=== PATIENT | female | born 1985 | race Two or more races ===

== ENCOUNTER 2024-05-21 07:35 | Inpatient (IN) | payer OTHER, SELFPAY ==
[2024-05-21] MEDS: LR 1000 IV (07:38)
[2024-05-21] MEDS: PITOCIN 10 UNITS IM (07:40)
[2024-05-21] MEDS: PITOCIN 30 UNITS/NSS 500 ML IV (07:45)
[2024-05-21 07:53] LABS: Cord ABG Comment CORD BLOOD
[2024-05-21 07:56] LABS: B.E. Cord ABG -3.8 mMOL/L; HCO3 Cord ABG 23.5 mmol/L; O2 Saturation % Cord ABG 36.6 %; PCO2 Cord ABG 50 mmHg; PO2 Cord ABG 22 mmHg; pH Cord ABG 7.28
[2024-05-21 07:59] LABS: B.E. Cord ABG -4.7 mMOL/L; HCO3 Cord ABG 24.1 mmol/L; O2 Saturation % Cord ABG 25.5 %; PCO2 Cord ABG 59 mmHg; PO2 Cord ABG 17 mmHg; pH Cord ABG 7.22
[2024-05-21 08:05] VITALS: BP 129/77; BMI 33.3
[2024-05-21 08:39] LABS: % Basophils 0.4 % (0-2); % Eosinophils 0.6 % (0-6); % Immature Granulocytes 1.8 % (0-0.5); % Lymphocytes 14.6 % (20.5-51.1); % Monocytes 5.5 % (1.7-9.3); % Neutrophils 77.1 % (42.2-75.2); Absolute Basophils 0.1 10^3/uL (0-0.2); Absolute Eosinophils 0.1 10^3/uL (0-0.7); Absolute Immature Granulocytes 0.3 10^3/uL (0-0.05); Absolute Lymphocytes 2.7 10^3/uL (1.2-3.4); Absolute Neutrophils 14.4 10^3/uL (1.4-6.5); Hematocrit 35.6 % (37.0-47.0); Hemoglobin 12.2 g/dL (12.0-16.0); Mean Corp Hgb Conc. 34.3 g/dL (33.0-37.0); Mean Corpuscular Hgb 28.4 pg (27.0-31.0); Mean Platelet Volume 10.4 fL (7.4-10.4); Nucleated Red Blood Cells % 0 %; Platelet Count 367 10^3/uL (130-400); Red Blood Cell Count 4.29 10^6/uL (4.20-5.40); Red Cell Dist. Width 14.1 % (11.5-14.5); White Blood Cell Count 18.7 10^3/uL (4.8-10.8)
[2024-05-21] MEDS: TYLENOL 650 MG PO ×3 (08:48→22:02)
[2024-05-21] MEDS: MOTRIN 600 MG PO ×2 (13:45→20:37)
[2024-05-22 04:30] LABS: Hematocrit 29.1 % (37.0-47.0); Hemoglobin 10.1 g/dL (12.0-16.0)
[2024-05-22 12:09] LABS: Syphilis/T. pallidum Ab Reflex Negative (Negative)
[2024-05-22] MEDS: TYLENOL 650 MG PO (18:33)
[2024-05-22] MEDS: MOTRIN 600 MG PO (18:33)
== END 2024-05-22 23:15 | disposition home or self-care (01) | DRG 807 ==
LOC: LDRP 07:35
PROVIDERS: ADMITTING PHYSICIAN Obstetrics & Gynecology; ATTENDING PHYSICIAN Obstetrics & Gynecology
PROC: 10D07Z7 Extraction of Products of Conception, Internal Version, Via Natural or Artificial Opening (ICD-10-PCS; 2024-05-21)
DX: O66.0 Obstructed labor due to shoulder dystocia (principal); Z37.0 Single live birth; O62.3 Precipitate labor; O77.0 Labor and delivery complicated by meconium in amniotic fluid; O71.89 Other specified obstetric trauma; Z3A.40 40 weeks gestation of pregnancy
CPT/HCPCS: 88307; 82803; 85014; 85018; 85025; 86780; 86850; 86900; 86901

== ENCOUNTER 2024-11-04 06:17 | Emergency (ER) | payer OTHER, SELFPAY ==
[2024-11-04 06:19] VITALS: BP 130/86
[2024-11-04 07:44] LABS: % Basophils 0.1 % (0-2); % Immature Granulocytes 0.5 % (0-0.5); % Lymphocytes 7.2 % (20.5-51.1); % Monocytes 3.3 % (1.7-9.3); % Neutrophils 88.9 % (42.2-75.2); Absolute Immature Granulocytes 0.1 10^3/uL (0-0.05); Absolute Lymphocytes 0.7 10^3/uL (1.2-3.4); Absolute Monocytes 0.3 10^3/uL (0.1-0.6); Absolute Neutrophils 9.1 10^3/uL (1.4-6.5); Hematocrit 41.4 % (37.0-47.0); Hemoglobin 13.8 g/dL (12.0-16.0); Mean Corp Hgb Conc. 33.3 g/dL (33.0-37.0); Mean Corpuscular Hgb 28.3 pg (27.0-31.0); Mean Platelet Volume 10.3 fL (7.4-10.4); Nucleated Red Blood Cells % 0 %; Platelet Count 335 10^3/uL (130-400); Red Blood Cell Count 4.87 10^6/uL (4.20-5.40); Red Cell Dist. Width 12.5 % (11.5-14.5); White Blood Cell Count 10.3 10^3/uL (4.8-10.8)
--- NOTE | 2024-11-04 07:51 | ED.GENMED ---
History of Present Illness
General
Chief Complaint: Abdominal Pain
Time Seen by Provider: 11/04/24 07:50
History of Present Illness
History of Present Illness:
TIME OF INITIAL ENCOUNTER: 7:55 AM
HPI: The patient presents with abdominal cramping associated with rectal bleeding. This started nearly 12 hours ago. She states that she and her family ate chicken last night but she was the only 1 that got sick. She also states that she ate a
protein bar that requires refrigeration. She denies any history of food allergies. She said around the time this happened, her feet and hands cramped up and her lips were blue. She fell asleep on the bathroom floor.
EXAM:
GENERAL: Well appearing in no distress
HEENT: Moist oral mucosa
CARDIOVASCULAR: No murmurs, normal heart rate, regular rhythm, No chest wall tenderness
PULMONARY: No respiratory distress, breath sounds are clear and equal
ABDOMEN: Soft with no peritoneal signs, minimal diffuse tenderness, no anal abnormality other than small nonthrombosed external hemorrhoid, no fissure, empty rectal vault, no gross blood,
NEUROLOGIC: Excellent strength all extremities, no coordination deficits
PSYCHIATRIC: Appropriate mental status, normal insight and judgement
EXTREMITIES: Nontender, no edema, moves all extremities equally
SKIN: No rash, no lesions
NUMBER AND COMPLEXITY OF PROBLEMS ADDRESSED AT THE ENCOUNTER
� Chronic conditions affecting care: History of plastic surgeries, anemia
� Acute Exacerbation and/or Progression of Chronic Illness: This is an acute problem
� Differential Diagnosis includes: Colitis, viral syndrome, foodborne illness, internal hemorrhoidal bleeding, external hemorrhoidal bleeding
AMOUNT AND/OR COMPLEXITY OF DATA TO BE REVIEWED AND ANALYZED
� I performed an independent evaluation of and my interpretation is:
EKG:
CT: CT imaging shows no acute abnormality
X-rays:
Laboratory Studies: Hemoglobin 13.8, white count normal chemistries relatively unremarkable but total bili is 1.6, hCG negative
Other:
� Review of other/old records: In May 2024, hemoglobin was 10.1
� Clinical information was obtained by an independent historian: Spoke to at bedside
� Prescriptions/Medications Considered but not given:
� Further testing considered but not performed:
RISK OF COMPLICATIONS AND/OR MORBIDITY OR MORTALITY OF PATIENT MANAGEMENT
� Social determinants of health affecting care: Lives at home
� Discussion with other providers: Notified GI service desk team lead to try to expedite close outpatient follow-up
� Escalation of care including admission/observation vs risk of discharge considered: White count is normal and hemoglobin is improved compared to prior. The patient requested imaging as she is very concerned about her symptoms.
Will also give IV fluids.
ANY OTHER UPDATES:
10:30 AM: I reassessed patient. The patient appears comfortable but does report passing blood again. No clear evidence for colitis but I did attempt to arrange close outpatient follow-up. She has been hemodynamically stable.
Phy Exam
Physical Exam
Physical Exam:
See HPI
Course
Orders/Labs/Results
Orders:
Orders
11/04/24 07:26
CMP [Comprehensive Metabolic Panel] Urgent
Complete Blood Count/With Diff Urgent
HCG, Serum Qualitative Screen Urgent
11/04/24 08:00
CT Abd/pelvis W Iv Cont Urgent
Comment:
Reason For Exam: abd cramping bloody diarrhea
11/04/24 08:06
0.9% Sodium Chloride 1000 ml [Nss] 1,000 ml IV BOLUS
11/04/24 08:09
Add On- LAB Urgent
Tests Added?: HCG
11/04/24 08:25
Norovirus by PCR Urgent
SHADE Source: Feces/Stool
Specimen Description:
Date Specimen was Collected: 11/04/24
Time Specimen was Collected: 08:04
STOOL [C difficile Antigen & Toxins] Urgent
SHADE Source: Feces/Stool
Specimen Description:
Date Specimen was Collected: 11/04/24
Time Specimen was Collected: 08:04
Stool Culture Urgent
SHADE Source: Feces/Stool
Specimen Description:
Date Specimen was Collected: 11/04/24
Time Specimen was Collected: 08:04
Abnormal Lab Results
11/04/24
07:26
Abs Immat Gran (auto) 0.1 H 10^3/uL
(0-0.05)
Absolute Neuts (auto) 9.1 H 10^3/uL
(1.4-6.5)
Absolute Lymphs (auto) 0.7 L 10^3/uL
(1.2-3.4)
Neutrophils % 88.9 H %
(42.2-75.2)
Lymphocytes % 7.2 L %
(20.5-51.1)
BUN 27 H mg/dl
(7-17)
Glucose 101 H mg/dl
(70-99)
Total Bilirubin 1.6 H mg/dl
(0.2-1.3)
11/04/24 07:26
11/04/24 07:26
Vital Signs
Initial and Last Documented VS:
Initial Vital Signs
Temp Pulse Resp BP Pulse Ox
37.2 C 100 20 130/86 97
11/04/24 06:19 11/04/24 06:19 11/04/24 06:19 11/04/24 06:19 11/04/24 06:19
Last Documented Vital Signs
Temp Pulse Resp BP Pulse Ox
37.2 C 100 20 130/86 97
11/04/24 06:19 11/04/24 06:19 11/04/24 06:19 11/04/24 06:19 11/04/24 06:19
*Critical Care Note
Total Time (30-74mins, 75-104mins- exclusive of procedures): Not Applicable
ED Attending Note
-
Portions of this chart may have been created with voice recognition software.� Occasional wrong word or��sound alike� substitutions may have occurred due to the inherent limitations of voice recognition software.
Discharge Plan
Departure
Patient Disposition: Home (Routine Discharge)
Date of Disposition: 11/04/24
Time of Disposition: 10:27
Patient with high blood pressure during this ER visit?: Yes
Discharge Problem:
Rectal bleeding
Instructions: Bloody Stools, Adult ED, BLOOD PRESSURE
Prescriptions:
No Action
acetaminophen 325 mg Tablet
650 mg PO Q4HPRN PRN (Reason: mild pain) Qty: 0 0RF
sennosides-docusate sodium [Stool Softener-Laxative] 8.6-50 mg Tablet
1 tab PO DAILYPRN PRN (Reason: constipation) Qty: 0 0RF
ibuprofen 600 mg Tablet
600 mg PO Q6HPRN PRN (Reason: moderate pain/cramps) Qty: 0 0RF
Referrals:
NONE,* [Family Provider] -
Shira Garcia, DO [Active] - Next open appointment
Activity Restrictions/Additional Instructions:
I have given you the contact information for a local GI doctor, Dr. Garcia. I also contacted her office to try to get you in soon. Your white blood cell hemoglobin levels are normal. The CAT scan of the abdomen pelvis did not show any acute
abnormality. testing was negative. Return here if worse or other concerns.
Interventions
Interventions:
*Risk Screen - Suicide Last Done: 11/04/24 06:19
*General Assessment Last Done: 11/04/24 08:10
*Neglect/Abuse Screening Last Done: 11/04/24 06:19
DX-Nyejog-Pongpbhgtt Assessment Last Done: 11/04/24 08:10
Discharge Date and Time
Print Language: PERUVIAN
[2024-11-04 07:53] LABS: ALT (SGPT) 21 U/L (0-35); AST (SGOT) 25 U/L (14-36); Albumin 4.7 g/dl (3.5-5.0); Alkaline Phosphatase 52 U/L (38-126); Blood Urea Nitrogen 27 mg/dl (7-17); Calcium 8.9 mg/dl (8.4-10.2); Carbon Dioxide 27 mmol/L (22-30); Chloride 102 mmol/L (98-107); Glucose 101 mg/dl (70-99); Sodium 140 mmol/L (135-145); Total Bilirubin 1.6 mg/dl (0.2-1.3); Total Protein 7.2 g/dl (6.3-8.2); eGFR > 60.00
[2024-11-04 08:10] VITALS: BMI 24.5
[2024-11-04] MEDS: NSS 1000 IV (08:27)
[2024-11-04 08:49] LABS: HCG, Serum Qualitative Screen Negative
[2024-11-04 10:48] VITALS: BP 145/78
== END 2024-11-04 10:49 | disposition home or self-care (01) ==
LOC: EMR 06:17
PROVIDERS: EMERGENCY PHYSICIAN Emergency Medicine
DX: K62.5 Hemorrhage of anus and rectum (principal)
CPT/HCPCS: 99284; 96360; 74177; 80053; 84703; 85025; 87045; 87046; 87324; 87427; 87449; 87798; Q9967

== ENCOUNTER 2024-11-27 21:29 | Emergency (ER) | payer OTHER, SELFPAY ==
--- NOTE | 2024-11-27 21:50 | ED.GENMED ---
History of Present Illness
<Terry Jordan PA-C - Last Filed: 11/28/24 01:15>
General
Chief Complaint: Abdominal Symptoms
Time Seen by Provider: 11/27/24 21:49
History of Present Illness
History of Present Illness:
39-year-old female with no significant past medical history presents to the emergency department via EMS due to high-volume diarrhea as well as a syncopal event. She had a sudden urge to defecate after eating at a restaurant, notes that she ate
scallops, shrimp, and salmon, had a syncopal event while in a convenience store and large volume of diarrhea. EMS reports that her BP was 45/30. No vomiting noted. She was here approximately 2 weeks ago due to bloody diarrhea and was diagnosed
with a viral syndrome. On arrival she was again incontinent of stool, high volume of watery diarrhea, blood-tinged. She is also reporting diffuse swelling bodily warmth
Review of Systems
<Terry Jordan PA-C - Last Filed: 11/28/24 01:15>
Review of Systems
Allergies reviewed?: Yes
All Other Systems: ROS reviewed and negative except as documented in HPI and ROS
Phy Exam
<Terry Jordan PA-C - Last Filed: 11/28/24 01:15>
Physical Exam
Physical Exam:
GEN: Toxic appearing, generally pale
Eyes: PERRLA, EOMs intact, no scleral icterus
HENT: NCAT, oral mucosa moist
Lungs: CTAB, no wheezes, rales, rhonchi, normal chest wall excursion
Cardiac: RRR, no M/R/G, no peripheral edema. Radial pulses 2+ bilat
Abdomen: S, NT, ND, NABS, no masses or hepatosplenomegaly
Neuro: AO x 3
MSK: No gross deformity or ecchymosis. No edema. No digital clubbing
Skin: Generally pale, diffuse erythema particularly of the lower extremities, mild facial and extremity edema noted
Psych: Calm, cooperative, proper hygiene
Course
<Terry Jordan PA-C - Last Filed: 11/28/24 01:15>
Orders/Labs/Results
Orders:
Orders
11/27/24 21:49
0.9% Sodium Chloride 1000 ml [Nss] 2,000 ml IV BOLUS
11/27/24 21:52
Electrocardiogram (*1) Urgent
Reason for Study: Chest Pain
EKG- Treatment ONCE
Diphenhydramine [Benadryl] 25 mg IV NOW STA
11/27/24 21:53
Diphenhydramine [Benadryl] 50 mg .ROUTE .STK-MED ONE
11/27/24 21:59
Complete Blood Count/With Diff Urgent
Comprehensive Metabolic Panel Urgent
Creatine Phosphokinase Urgent
Comment: ADDON
Lactic Acid Urgent
Lipase Urgent
Magnesium Urgent
Manual Differential Urgent
11/27/24 22:15
Famotidine [Pepcid] 20 mg IV NOW STA
MethylPREDNISolone PF [Solu-Medrol Pf] 60 mg IV NOW STA
11/27/24 22:40
Add On- LAB Urgent
Tests Added?: CPK
11/27/24 22:41
Diphenhydramine [Benadryl] 25 mg IV NOW STA
11/27/24 23:54
Lactate Level [Lactic Acid] Urgent
11/28/24 00:22
Acetaminophen [Tylenol] 650 mg .ROUTE .STK-MED ONE
11/28/24 00:25
Acetaminophen [Tylenol] 650 mg PO NOW STA
Abnormal Lab Results
11/27/24
21:59
WBC 10.9 H 10^3/uL
(4.8-10.8)
Plt Count 557 H 10^3/uL
(130-400)
Segmented Neutrophils 39 L %
(42-75)
Potassium 3.3 L mmol/L
(3.5-5.1)
BUN 26 H mg/dl
(7-17)
Glucose 159 H mg/dl
(70-99)
Lactic Acid 4.3 H* mmol/L
(0.7-2.0)
Creatine Kinase 566 H U/L
(30-135)
11/27/24 21:59
11/27/24 21:59
Vital Signs
Initial and Last Documented VS:
Initial Vital Signs
Pulse Resp Pulse Ox
99 18 97
11/27/24 21:54 11/27/24 21:54 11/27/24 21:54
Last Documented Vital Signs
Temp Pulse Resp BP Pulse Ox
95.4 F L 87 17 116/77 96
11/27/24 23:19 11/27/24 23:30 11/27/24 23:30 11/28/24 02:15 11/28/24 02:15
<Nate Isaac MD - Last Filed: 11/30/24 13:36>
Orders/Labs/Results
Orders:
Orders
11/27/24 21:49
0.9% Sodium Chloride 1000 ml [Nss] 2,000 ml IV BOLUS
11/27/24 21:52
Electrocardiogram (*1) Urgent
Reason for Study: Chest Pain
EKG- Treatment ONCE
Diphenhydramine [Benadryl] 25 mg IV NOW STA
11/27/24 21:53
Diphenhydramine [Benadryl] 50 mg .ROUTE .STK-MED ONE
11/27/24 21:59
Complete Blood Count/With Diff Urgent
Comprehensive Metabolic Panel Urgent
Creatine Phosphokinase Urgent
Comment: ADDON
Lactic Acid Urgent
Lipase Urgent
Magnesium Urgent
Manual Differential Urgent
11/27/24 22:15
Famotidine [Pepcid] 20 mg IV NOW STA
MethylPREDNISolone PF [Solu-Medrol Pf] 60 mg IV NOW STA
11/27/24 22:40
Add On- LAB Urgent
Tests Added?: CPK
11/27/24 22:41
Diphenhydramine [Benadryl] 25 mg IV NOW STA
11/27/24 23:54
Lactate Level [Lactic Acid] Urgent
11/28/24 00:22
Acetaminophen [Tylenol] 650 mg .ROUTE .STK-MED ONE
11/28/24 00:25
Acetaminophen [Tylenol] 650 mg PO NOW STA
Abnormal Lab Results
11/27/24
21:59
WBC 10.9 H 10^3/uL
(4.8-10.8)
Plt Count 557 H 10^3/uL
(130-400)
Segmented Neutrophils 39 L %
(42-75)
Potassium 3.3 L mmol/L
(3.5-5.1)
BUN 26 H mg/dl
(7-17)
Glucose 159 H mg/dl
(70-99)
Lactic Acid 4.3 H* mmol/L
(0.7-2.0)
Creatine Kinase 566 H U/L
(30-135)
11/27/24 21:59
11/27/24 21:59
Vital Signs
Initial and Last Documented VS:
Initial Vital Signs
Pulse Resp Pulse Ox
99 18 97
11/27/24 21:54 11/27/24 21:54 11/27/24 21:54
Last Documented Vital Signs
Temp Pulse Resp BP Pulse Ox
95.4 F L 87 17 116/77 96
11/27/24 23:19 11/27/24 23:30 11/27/24 23:30 11/28/24 02:15 11/28/24 02:15
<Terry Jordan PA-C - Last Filed: 11/28/24 01:15>
MDM/Problems Addressed
MDM/Problems Addressed:
Because the patient's symptoms is not clear. Certainly could represent acute scombroid fish poisoning however salmon is not a high incidence of causing this condition. Interestingly she does note having a similar event 1 week ago it was not nearly
as severe, this was not correlated with any seafood intake. Nevertheless she was hydrated aggressively and warmed with significant improvement in vital signs as well as physical appearance. Her edema did improve with antihistamines. Recommend
outpatient allergy follow-up, EpiPen will be prescribed given the frequency of these events
<Terry Jordan PA-C - Last Filed: 11/28/24 01:15>
*Critical Care Note
Total Time (30-74mins, 75-104mins- exclusive of procedures): Not Applicable
ED Attending Note
<Terry Jordan PA-C - Last Filed: 11/28/24 01:15>
-
Portions of this chart may have been created with voice recognition software.� Occasional wrong word or��sound alike� substitutions may have occurred due to the inherent limitations of voice recognition software.
<Nate Isaac MD - Last Filed: 11/30/24 13:36>
ED Attending Note
Patient seen and examined by attending physician: Yes
ED Attending Note:
Patient presents to ED for evaluation after she passed out at [facility], where she had stopped by bowel movement, on the way home from having eaten outside at a restaurant. Her dinner consisted of shrimp. Patient states that as she was walking into
[facility], she started to experience tingling sensation in her tongue as well as tightness sensation in her throat. Patient also experienced brief episode of chest pain or shortness of breath. When paramedics arrived at scene, patient was somnolent but
arousable, with unstable vital signs, where she was found to be hypotensive and bradycardic. Upon arrival to ED, patient found to be incontinent stool along with extreme redness diffusely and hypothermic. Patient states that she has had similar GI
symptoms 1 week ago, during which time she once again passed out while having bowel movement. Patient was not evaluated at that time. There are multiple families currently who have or are experienced GI symptoms. Denies recent travel.
Physical Exam
General: moderate distress, acutely ill. hypothermic. weak appearing
Head: nc/at. eomi
Neck: supple. normal range of motion. normal posterior pharynx
Heart: s1/s2 regular rate and rhythm, no murmur. equal radial pulses.
Lungs: no acute respiratory distress. clear bilaterally
Abdomen: normal bowel sounds. not tender.
Neuro: alert and oriented x 3. no focal neurological deficits
Skin: diffuse erythema noted.
Psychiatric: well kept. interactive and cooperative
Extremities: no edema. no calf tenderness.
Patient treated acutely for potential severe allergic reaction, with gradual improvement over time. Hypothermia treated conservatively with warm blankets, with improvement.
Discharge Plan
Departure
Patient Disposition: Home (Routine Discharge)
Date of Disposition: 11/28/24
Time of Disposition: 00:22
Patient with high blood pressure during this ER visit?: No
Discharge Problem:
Diarrhea, Anaphylaxis
Instructions: Anaphylaxis
Prescriptions:
New
epinephrine 0.3 mg/0.3 mL auto-injector
0.3 mg IM ONCE Qty: 2 0RF
Referrals:
Marci Reynolds MD [Consulting Staff] -
Activity Restrictions/Additional Instructions:
We suspect the symptoms are driven by an acute allergic reaction. The cause of which is unclear. We also considered reaction such as scombroid fish poisoning or mast cell activation syndrome, any of these conditions would require an allergy
specialist for follow-up. I have prescribed you an EpiPen and any recurrent symptoms should prompt immediate use of an EpiPen and emergency department evaluation
Interventions
Interventions:
*Risk Screen - Suicide Last Done: 11/27/24 22:00
*General Assessment Last Done: 11/27/24 21:31
*Neglect/Abuse Screening Last Done: 11/27/24 22:00
ED- Fall Risk Assessment Last Done: 11/27/24 22:00
*ED COVID-19 Vaccine History Last Done: 11/27/24 21:31
*Nursing Disposition Last Done: 11/28/24 03:47
QH-Piucpw-Yowotbkilm Assessment Last Done: 11/27/24 22:00
Discharge Date and Time
Discharge Date/Time: 11/28/24 03:47
Print Language: BURUNDIAN
[2024-11-27] MEDS: NSS 2000 IV (21:56)
[2024-11-27] MEDS: BENADRYL 25 MG IV (21:57)
[2024-11-27 21:58] VITALS: BMI 26.4
[2024-11-27 22:01] VITALS: BP 225/177
[2024-11-27 22:02] VITALS: BP 251/165
[2024-11-27 22:21] LABS: Hematocrit 44.8 % (37.0-47.0); Mean Corp Hgb Conc. 33.5 g/dL (33.0-37.0); Mean Corpuscular Hgb 28.5 pg (27.0-31.0); Mean Corpuscular Volume 85.2 fL (81.0-99.0); Platelet Count 557 10^3/uL (130-400); Red Blood Cell Count 5.26 10^6/uL (4.20-5.40); Red Cell Dist. Width 12.9 % (11.5-14.5); White Blood Cell Count 10.9 10^3/uL (4.8-10.8)
[2024-11-27] MEDS: SOLU-MEDROL PF 60 MG IV (22:25)
[2024-11-27] MEDS: PEPCID 20 MG IV (22:25)
[2024-11-27 22:29] LABS: ALT (SGPT) 31 U/L (0-35); AST (SGOT) 35 U/L (14-36); Alkaline Phosphatase 74 U/L (38-126); Blood Urea Nitrogen 26 mg/dl (7-17); Calcium 9.6 mg/dl (8.4-10.2); Carbon Dioxide 22 mmol/L (22-30); Chloride 105 mmol/L (98-107); Estimated Creatinine Clearance 84 ml/min; Glucose 159 mg/dl (70-99); Lipase 140 U/L (23-300); Potassium 3.3 mmol/L (3.5-5.1); Sodium 139 mmol/L (135-145); Total Bilirubin 0.8 mg/dl (0.2-1.3); Total Protein 6.8 g/dl (6.3-8.2); eGFR > 60.00
[2024-11-27 22:37] LABS: Lactic Acid 4.3 mmol/L (0.7-2.0)
[2024-11-27 22:40] VITALS: BP 91/50
[2024-11-27 22:47] LABS: Segmented Neutrophils 39 % (42-75)
[2024-11-27 22:48] LABS: Absolute Neutrophils -Man Diff 4.3 10^3/uL (1.4-6.5); Atypical Lymphocytes 9 %; Band Neutrophils 1 % (0-3); Lymphocytes 49 % (20-51); Monocytes 2 % (2-9); Normal RBC Morphology Yes; Platelets Checked Yes; Total Cells Counted 100
[2024-11-27 23:00] VITALS: BP 109/67
[2024-11-27 23:19] LABS: Creatine Phosphokinase 566 U/L (30-135)
[2024-11-27 23:30] VITALS: BP 123/87
[2024-11-28] VITALS (8 sets, daily range): BP systolic 116–125; BP diastolic 75–83
[2024-11-28 00:13] LABS: Lactic Acid 1.6 mmol/L (0.7-2.0)
== END 2024-11-28 03:47 | disposition home or self-care (01) ==
LOC: EMR 21:29
PROVIDERS: Physician Assistant; EMERGENCY PHYSICIAN Emergency Medicine
DX: R19.7 Diarrhea, unspecified (principal); T78.00XA Anaphylactic reaction due to unspecified food, initial encounter; X58.XXXA Exposure to other specified factors, initial encounter
CPT/HCPCS: 99284; 96374; 96375 ×2; 96361; 80053; 82550; 83605; 83690; 83735; 85025; 93005